=== PATIENT | female | born 1950 | race Caucasian/White ===

== ENCOUNTER → 2016-12-20 | Outpatient (CLI) | payer MEDICAID ==
[~2016-12-20] MED LIST: ALAVERT10 MG PO; AMITRIPTYLINE25 MG PO; ASPI-COR81 M1 PO; ASPIRIN325 M2 PO; ATORVASTATIN CA20 M1 PO; CIPRO500 MG PO; CLONAZEPAM0.5 M1 PO; DILANTIN50 MG PO; FLUOXETINE20 MG PO; Flovent 220 M220 MCG INH; GEODON20 MG PO; LAMISIL AT JOCK IT1% T; METOCLOPRAMIDE H5 M1 PO; METRONIDAZOLE500 M1 PO; MIRTAZAPINE30 MG PO; MOTRIN800 MG PO; NAPROSYN500 MG PO; NICODERM C21 MG/242 TD; NORVASC5 MG PO; OMEPRAZOLE20 MG PO; OS-CAL 500+D31 EACH PO; OYSTER SHELL CA1 T22 PO; PANTOPRAZOLE SO40 MG PO; PHENYTOIN SODI100 M5 PO; PLAVIX75 MG PO; PROAIR HFA0.09 MG/AC IH; RANITIDINE150 MG PO; VITAMIN D32000 UNI1 PO; [UNRECOGNIZED DRUG - OTHER] PO
== END | disposition home or self-care (01) ==
LOC: MAMMO 10:00
DX: Z12.31 Encounter for screening mammogram for malignant neoplasm of breast (principal)

== ENCOUNTER 2017-03-27 14:25 | Inpatient (IN) | payer MEDICAID ==
[~2017-03-27] VITALS: Ht 152.4 cm; Wt 56.7 kg
[2017-03-27 14:25] VITALS: BP 136/80
[2017-03-27] MEDS ORDERED: AMLODIPINE BESYL5 MG PO (14:57)
[2017-03-27] MEDS ORDERED: ASPIRIN325 M2 PO (14:57)
[2017-03-27] MEDS ORDERED: LIPITOR20 MG PO (14:58)
[2017-03-27] MEDS ORDERED: Oscal,Oyster S500 MG PO (15:00)
[2017-03-27] MEDS ORDERED: PROZAC20 MG PO (15:00)
[2017-03-27] MEDS ORDERED: PHENYTOIN100 MG PO (15:01)
[2017-03-27] MEDS ORDERED: ZIPRASIDONE HCL20 M1 PO (15:01)
[2017-03-27] MEDS ORDERED: VITAMIN D31000 UNI1 PO (15:01)
[2017-03-27] MEDS ORDERED: MIRTAZAPINE30 M2 PO (15:02)
[2017-03-27 15:46] VITALS: BP 137/46
[2017-03-27 16:19] LABS: BASO # 0.1 10*3/uL (0.0-0.1); BASO % 0.8 % (0.0-1.0); EOS # 0.2 10*3/uL (0.0-0.4); EOS % 2.7 % (1.0-4.0); HEMATOCRIT 39.5 % (37.0-47.0); HEMOGLOBIN 13.6 g/dl (12.0-16.0); LYMPH # 2.1 10*3/uL (1.3-4.4); LYMPH % 27.5 % (27.0-41.0); MEAN CELL VOLUME 97.8 fl (81.0-99.0); MEAN CORPUSCULAR HGB 33.7 pg (27.0-31.0); MEAN CORPUSCULAR HGB CONC 34.4 g/dl (33.0-37.0); MEAN PLATELET VOLUME 10.3 fl (9.6-12.3); MONO # 0.5 10*3/uL (0.1-1.0); NEUT # 4.9 10*3/uL (2.3-7.9); NEUT % 62.7 % (47.0-73.0); PLATELET COUNT AUTOMATED 157 10*3/uL (130-400); RED BLOOD COUNT 4.04 10*6/uL (4.10-5.10); RED CELL DISTRI WIDTH 11.9 % (0-14.5); WHITE BLOOD COUNT 7.7 10*3/uL (4.8-10.8)
[2017-03-27 16:30] VITALS: BP 132/52
[2017-03-27 16:30] LABS: ACT PARTIAL THROMBO TIME 23.7 SECONDS (20.8-31.5)
[2017-03-27 16:35] LABS: ALBUMIN 3.5 gm/dl (3.1-4.5); ALKALINE PHOSPHATASE 169 U/L (45-117); BUN 9 mg/dl (7-24); CHLORIDE 104 mmol/L (98-107); CREATININE 0.61 mg/dL (0.55-1.02); POTASSIUM 3.6 mmol/L (3.5-5.1); SGOT/AST 18 IU/L (3-35); SGPT/ALT 17 U/L (12-78); SODIUM 140 mmol/L (136-145); TOTAL PROTEIN 7.1 gm/dL (6.4-8.2)
[2017-03-27 17:13] LABS: BILIRUBIN NEGATIVE (NEGATIVE); BLOOD NEGATIVE (NEGATIVE); CLARITY SL CLOUDY (CLEAR); COLOR YELLOW (YELLOW); GLUCOSE NEGATIVE (NEGATIVE); KETONE NEGATIVE (NEGATIVE); LEUKO ESTERASE TRACE (NEGATIVE); NITRITE NEGATIVE (NEGATIVE); PH 6.5 (5.0-9.0); UROBILINOGEN 0.2 E.U./dl (0.2-1.0)
[2017-03-27 17:21] LABS: BACTERIA 1+; EPITHELIAL CELLS TNTC; RBC 0-2 rbc/hpf (0-2)
[2017-03-27 18:00] VITALS: BP 115/43; BP 128/50
[2017-03-28] VITALS: BP 98/60
[2017-03-28 04:00] VITALS: BP 100/50
[2017-03-28 06:11] LABS: BASO # 0.1 10*3/uL (0.0-0.1); BASO % 1.1 % (0.0-1.0); EOS # 0.3 10*3/uL (0.0-0.4); HEMOGLOBIN 12.7 g/dl (12.0-16.0); LYMPH # 1.9 10*3/uL (1.3-4.4); LYMPH % 34.7 % (27.0-41.0); MEAN CELL VOLUME 98.4 fl (81.0-99.0); MEAN CORPUSCULAR HGB 33.8 pg (27.0-31.0); MEAN CORPUSCULAR HGB CONC 34.3 g/dl (33.0-37.0); MEAN PLATELET VOLUME 10.5 fl (9.6-12.3); MONO # 0.4 10*3/uL (0.1-1.0); NEUT # 2.8 10*3/uL (2.3-7.9); PLATELET COUNT AUTOMATED 138 10*3/uL (130-400); RED BLOOD COUNT 3.76 10*6/uL (4.10-5.10); RED CELL DISTRI WIDTH 12.1 % (0-14.5); WHITE BLOOD COUNT 5.4 10*3/uL (4.8-10.8)
[2017-03-28 06:38] LABS: ALBUMIN 3.2 gm/dl (3.1-4.5); BUN 16 mg/dl (7-24); CHLORIDE 104 mmol/L (98-107); CREATININE 0.65 mg/dL (0.55-1.02); POTASSIUM 4.4 mmol/L (3.5-5.1); SGOT/AST 16 IU/L (3-35); SGPT/ALT 18 U/L (12-78); SODIUM 140 mmol/L (136-145); TOTAL PROTEIN 6.6 gm/dL (6.4-8.2)
[2017-03-28 06:39] LABS: ALKALINE PHOSPHATASE 157 U/L (45-117)
[2017-03-28 08:00] VITALS: BP 121/34
[2017-03-28 12:00] VITALS: BP 146/71
[2017-03-28 16:00] VITALS: BP 110/39
[2017-03-28 20:00] VITALS: BP 103/43
[2017-03-29] VITALS: BP 110/50
[2017-03-29 04:00] VITALS: BP 113/58
[2017-03-29 05:16] LABS: BASO # 0.1 10*3/uL (0.0-0.1); BASO % 1.3 % (0.0-1.0); EOS # 0.3 10*3/uL (0.0-0.4); EOS % 5.5 % (1.0-4.0); HEMATOCRIT 35.7 % (37.0-47.0); HEMOGLOBIN 12.2 g/dl (12.0-16.0); LYMPH # 2.1 10*3/uL (1.3-4.4); MEAN CELL VOLUME 98.3 fl (81.0-99.0); MEAN CORPUSCULAR HGB 33.6 pg (27.0-31.0); MEAN CORPUSCULAR HGB CONC 34.2 g/dl (33.0-37.0); MEAN PLATELET VOLUME 10.4 fl (9.6-12.3); MONO # 0.4 10*3/uL (0.1-1.0); MONO % 8.4 % (3.0-9.0); NEUT # 2.4 10*3/uL (2.3-7.9); NEUT % 45.4 % (47.0-73.0); PLATELET COUNT AUTOMATED 137 10*3/uL (130-400); RED BLOOD COUNT 3.63 10*6/uL (4.10-5.10); RED CELL DISTRI WIDTH 11.9 % (0-14.5); WHITE BLOOD COUNT 5.3 10*3/uL (4.8-10.8)
[2017-03-29 05:32] LABS: ALBUMIN 3.1 gm/dl (3.1-4.5); ALKALINE PHOSPHATASE 153 U/L (45-117); BUN 18 mg/dl (7-24); CHLORIDE 105 mmol/L (98-107); POTASSIUM 4.1 mmol/L (3.5-5.1); SGOT/AST 17 IU/L (3-35); SGPT/ALT 16 U/L (12-78); SODIUM 140 mmol/L (136-145); TOTAL PROTEIN 6.3 gm/dL (6.4-8.2)
[2017-03-29 08:00] VITALS: BP 98/40
[2017-03-29 12:00] VITALS: BP 100/67
[2017-03-29] MEDS ORDERED: DILANTIN100 MG PO (14:46)
== END 2017-03-29 15:43 | disposition home health service (06) | DRG 918 ==
LOC: ED 14:25 → EDHOLD 17:06 → ICCU 17:50
PROVIDERS: Emergency Medicine; Internal Medicine
DX: T42.0X1A Poisoning by hydantoin derivatives, accidental (unintentional), initial encounter (principal); E83.41 Hypermagnesemia; I69.351 Hemiplegia and hemiparesis following cerebral infarction affecting right dominant side; I69.320 Aphasia following cerebral infarction; M62.89 Other specified disorders of muscle; R00.1 Bradycardia, unspecified; I10 Essential (primary) hypertension; I73.9 Peripheral vascular disease, unspecified; F32.9 Major depressive disorder, single episode, unspecified; Z87.891 Personal history of nicotine dependence; Z82.49 Family history of ischemic heart disease and other diseases of the circulatory system; Z83.3 Family history of diabetes mellitus; Z80.9 Family history of malignant neoplasm, unspecified; Z79.899 Other long term (current) drug therapy; Z79.82 Long term (current) use of aspirin

== ENCOUNTER 2017-05-02 10:53 | Inpatient (IN) | payer MEDICAID ==
[~2017-05-02] VITALS: Ht 162.5 cm; Wt 61.2 kg
[2017-05-02 10:53] VITALS: BP 139/57
[~2017-05-02 10:53] MED LIST changes: +AMLODIPINE BESYL5 MG PO; +DILANTIN100 MG PO; +LIPITOR20 MG PO; +MIRTAZAPINE30 M2 PO; +Oscal,Oyster S500 MG PO; +PHENYTOIN100 MG PO; +PROZAC20 MG PO; +VITAMIN D31000 UNI1 PO; +ZIPRASIDONE HCL20 M1 PO
[2017-05-02] MEDS ORDERED: NAPROXEN375 MG PO (11:31)
[2017-05-02 11:42] LABS: BASO # 0.1 10*3/uL (0.0-0.1); BASO % 1.2 % (0.0-1.0); EOS # 0.2 10*3/uL (0.0-0.4); EOS % 2.3 % (1.0-4.0); HEMATOCRIT 39.9 % (37.0-47.0); HEMOGLOBIN 13.7 g/dl (12.0-16.0); LYMPH # 1.5 10*3/uL (1.3-4.4); LYMPH % 22.1 % (27.0-41.0); MEAN CELL VOLUME 99.5 fl (81.0-99.0); MEAN CORPUSCULAR HGB 34.2 pg (27.0-31.0); MEAN CORPUSCULAR HGB CONC 34.3 g/dl (33.0-37.0); MONO # 0.4 10*3/uL (0.1-1.0); MONO % 6.3 % (3.0-9.0); NEUT # 4.4 10*3/uL (2.3-7.9); NEUT % 67.6 % (47.0-73.0); PLATELET COUNT AUTOMATED 178 10*3/uL (130-400); RED BLOOD COUNT 4.01 10*6/uL (4.10-5.10); RED CELL DISTRI WIDTH 12.3 % (0-14.5); WHITE BLOOD COUNT 6.6 10*3/uL (4.8-10.8)
[2017-05-02 11:51] LABS: ACT PARTIAL THROMBO TIME 21.6 SECONDS (20.8-31.5)
[2017-05-02 11:59] LABS: ALBUMIN 3.7 gm/dl (3.1-4.5); ALKALINE PHOSPHATASE 161 U/L (45-117); BUN 12 mg/dl (7-24); CHLORIDE 103 mmol/L (98-107); CREATININE 0.68 mg/dL (0.55-1.02); PHENYTOIN (DILANTIN) 5.8 ug/ml (10-20); POTASSIUM 3.6 mmol/L (3.5-5.1); SGOT/AST 26 IU/L (3-35); SGPT/ALT 18 U/L (12-78); SODIUM 138 mmol/L (136-145); TOTAL PROTEIN 7.4 gm/dL (6.4-8.2); TROPONIN I 0.033 ng/ml (<0.045)
[2017-05-02 12:06] VITALS: BP 137/48
[2017-05-02 13:33] VITALS: BP 134/50
[2017-05-02 14:37] LABS: BILIRUBIN NEGATIVE (NEGATIVE); BLOOD NEGATIVE (NEGATIVE); CLARITY SL CLOUDY (CLEAR); COLOR YELLOW (YELLOW); GLUCOSE NEGATIVE (NEGATIVE); KETONE NEGATIVE (NEGATIVE); LEUKO ESTERASE NEGATIVE (NEGATIVE); NITRITE NEGATIVE (NEGATIVE); PH 7.5 (5.0-9.0); SPECIFIC GRAVITY 1.015 (1.005-1.030); UROBILINOGEN 0.2 E.U./dl (0.2-1.0)
[2017-05-02 14:49] LABS: URINE AMPHETAMINES < 1000 (1000ng/ml); URINE BARBITURATES < 200 (200ng/ml); URINE BENZODIAZEPINES < 200 (200ng/ml); URINE CANNABINOIDS (THC) < 50 (50ng/ml); URINE COCAINE < 300 (300ng/ml); URINE METHADONE < 300 (300ng/ml); URINE OPIATES < 300 (300ng/ml)
[2017-05-02 14:50] LABS: URINE PHENCYCLIDINE < 25 (25ng/ml)
[2017-05-02 15:10] LABS: BACTERIA TRACE
[2017-05-02 16:00] VITALS: BP 121/40
[2017-05-02 20:00] VITALS: BP 106/42
[2017-05-03] VITALS: BP 100/48
[2017-05-03 06:54] LABS: BASO # 0.1 10*3/uL (0.0-0.1); EOS # 0.2 10*3/uL (0.0-0.4); EOS % 3.8 % (1.0-4.0); HEMOGLOBIN 11.7 g/dl (12.0-16.0); LYMPH # 1.9 10*3/uL (1.3-4.4); LYMPH % 32.5 % (27.0-41.0); MEAN CELL VOLUME 98.8 fl (81.0-99.0); MEAN CORPUSCULAR HGB 34.5 pg (27.0-31.0); MEAN CORPUSCULAR HGB CONC 34.9 g/dl (33.0-37.0); MEAN PLATELET VOLUME 10.2 fl (9.6-12.3); MONO # 0.5 10*3/uL (0.1-1.0); MONO % 8.6 % (3.0-9.0); NEUT # 3.1 10*3/uL (2.3-7.9); NEUT % 53.9 % (47.0-73.0); PLATELET COUNT AUTOMATED 160 10*3/uL (130-400); RED BLOOD COUNT 3.39 10*6/uL (4.10-5.10); RED CELL DISTRI WIDTH 12.4 % (0-14.5); WHITE BLOOD COUNT 5.7 10*3/uL (4.8-10.8)
[2017-05-03 07:00] LABS: HEMATOCRIT 33.5 % (37.0-47.0)
[2017-05-03 07:12] LABS: ALBUMIN 3.1 gm/dl (3.1-4.5); ALKALINE PHOSPHATASE 131 U/L (45-117); BUN 12 mg/dl (7-24); CHLORIDE 107 mmol/L (98-107); CHOLESTEROL 143 mg/dL (<200); HDL CHOLESTEROL 96 mg/dl (40-60); LDL CHOLESTEROL 39 mg/dL (9-159); PHOSPHOROUS 2.9 mg/dL (2.5-4.9); POTASSIUM 3.7 mmol/L (3.5-5.1); SGOT/AST 20 IU/L (3-35); SGPT/ALT 16 U/L (12-78); SODIUM 140 mmol/L (136-145); TOTAL PROTEIN 6.2 gm/dL (6.4-8.2); TRIGLYCERIDES 39 mg/dl (<150); VLDL CHOLESTEROL 8 mg/dL (6-40)
[2017-05-03 07:17] LABS: PHENYTOIN (DILANTIN) 14.6 ug/ml (10-20)
[2017-05-03 08:00] VITALS: BP 140/72
[2017-05-03 08:33] VITALS: BP 92/50
[2017-05-03 08:51] LABS: VITAMIN D, 25-HYDROXY 36.5 ng/mL (30-100)
[2017-05-03 12:00] VITALS: BP 98/55
== END 2017-05-03 15:59 | disposition home or self-care (01) | DRG 101 ==
LOC: ED 10:53 → EDHOLD 12:26 → 4E 12:26 → EDHOLD 12:44 → 4E 13:06
PROVIDERS: Student in an Organized Health Care Education/Training Program
DX: G40.909 Epilepsy, unspecified, not intractable, without status epilepticus (principal); J44.9 Chronic obstructive pulmonary disease, unspecified; R47.01 Aphasia; D72.810 Lymphocytopenia; D75.89 Other specified diseases of blood and blood-forming organs; R00.1 Bradycardia, unspecified; R55 Syncope and collapse; I10 Essential (primary) hypertension; W10.8XXA Fall (on) (from) other stairs and steps, initial encounter; F32.9 Major depressive disorder, single episode, unspecified; I73.9 Peripheral vascular disease, unspecified; K44.9 Diaphragmatic hernia without obstruction or gangrene; E78.5 Hyperlipidemia, unspecified; Z86.73 Personal history of transient ischemic attack (TIA), and cerebral infarction without residual deficits; Z51.81 Encounter for therapeutic drug level monitoring; Y93.89 Activity, other specified; Y99.8 Other external cause status; Y92.099 Unspecified place in other non-institutional residence as the place of occurrence of the external cause; Z79.82 Long term (current) use of aspirin; Z79.899 Other long term (current) drug therapy; Z87.81 Personal history of (healed) traumatic fracture; Z87.891 Personal history of nicotine dependence; Z72.89 Other problems related to lifestyle; Z82.49 Family history of ischemic heart disease and other diseases of the circulatory system; Z83.6 Family history of other diseases of the respiratory system; Z83.3 Family history of diabetes mellitus; Z80.9 Family history of malignant neoplasm, unspecified; I25.2 Old myocardial infarction

== ENCOUNTER 2017-09-19 22:06 | Inpatient (IN) | payer MEDICAID ==
[~2017-09-19] VITALS: Ht 149.9 cm; Wt 65.0 kg
--- NOTE | ~2017-09-19 | EKG ---
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 Electronically Signed On 09-23-2017 8:01:58 PDT by Clayton Knott MD CM:EKGRPT:ELECTROCARDIOGRAM REPORT [id number] REJI CRUZ MD EPIPHANY DRAFT REPORT REJI CRUZ MD
--- NOTE | ~2017-09-19 | EKG ---
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
--- NOTE | ~2017-09-19 | EKG ---
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
[~2017-09-19 22:06] MED LIST changes: +NAPROXEN375 MG PO
[2017-09-19 22:42] VITALS: BP 136/70
[2017-09-19 23:19] LABS: BASO # 0.1 10*3/uL (0.0-0.1); EOS # 0.2 10*3/uL (0.0-0.4); EOS % 3.1 % (1.0-4.0); HEMATOCRIT 36.7 % (37.0-47.0); HEMOGLOBIN 12.6 g/dl (12.0-16.0); LYMPH # 2.3 10*3/uL (1.3-4.4); LYMPH % 31.5 % (27.0-41.0); MEAN CELL VOLUME 100.5 fl (81.0-99.0); MEAN CORPUSCULAR HGB 34.5 pg (27.0-31.0); MEAN CORPUSCULAR HGB CONC 34.3 g/dl (33.0-37.0); MEAN PLATELET VOLUME 9.8 fl (9.6-12.3); MONO # 0.6 10*3/uL (0.1-1.0); MONO % 7.9 % (3.0-9.0); NEUT # 4.1 10*3/uL (2.3-7.9); NEUT % 56.2 % (47.0-73.0); PLATELET COUNT AUTOMATED 176 10*3/uL (130-400); RED BLOOD COUNT 3.65 10*6/uL (4.10-5.10); RED CELL DISTRI WIDTH 12.2 % (0-14.5); WHITE BLOOD COUNT 7.4 10*3/uL (4.8-10.8)
[2017-09-19 23:36] LABS: ALBUMIN 3.5 gm/dl (3.1-4.5); ALKALINE PHOSPHATASE 149 U/L (45-117); BUN 16 mg/dl (7-24); CHLORIDE 105 mmol/L (98-107); CREATININE 0.63 mg/dL (0.55-1.02); POTASSIUM 3.9 mmol/L (3.5-5.1); SGOT/AST 25 IU/L (3-35); SGPT/ALT 26 U/L (12-78); SODIUM 139 mmol/L (136-145); TOTAL PROTEIN 6.8 gm/dL (6.4-8.2)
[2017-09-19 23:38] LABS: TROPONIN I < 0.015 ng/ml (<0.045)
[2017-09-19 23:53] LABS: BILIRUBIN NEGATIVE (NEGATIVE); BLOOD NEGATIVE (NEGATIVE); CLARITY CLEAR (CLEAR); COLOR YELLOW (YELLOW); GLUCOSE NEGATIVE (NEGATIVE); KETONE NEGATIVE (NEGATIVE); LEUKO ESTERASE NEGATIVE (NEGATIVE); NITRITE NEGATIVE (NEGATIVE); SPECIFIC GRAVITY <= 1.005 (1.005-1.030); UROBILINOGEN 0.2 E.U./dl (0.2-1.0)
[2017-09-20] VITALS (7 sets, daily range): BP systolic 90–146; BP diastolic 46–89
[2017-09-20] MEDS ORDERED: VITAMIN D31000 UNI1 PO (00:19)
[2017-09-20 00:34] LABS: EPITHELIAL CELLS 0-5; WBC 0-2 wbc/hpf (0-5)
[2017-09-20 04:40] LABS: ALBUMIN 3.2 gm/dl (3.1-4.5); ALKALINE PHOSPHATASE 142 U/L (45-117); BUN 12 mg/dl (7-24); CHLORIDE 109 mmol/L (98-107); CHOLESTEROL 143 mg/dL (<200); CREATININE 0.56 mg/dL (0.55-1.02); HDL CHOLESTEROL 80 mg/dl (40-60); LDL CHOLESTEROL 56 mg/dL (9-159); POTASSIUM 3.9 mmol/L (3.5-5.1); SGOT/AST 24 IU/L (3-35); SGPT/ALT 25 U/L (12-78); SODIUM 143 mmol/L (136-145); TOTAL PROTEIN 6.5 gm/dL (6.4-8.2); TRIGLYCERIDES 37 mg/dl (<150); VLDL CHOLESTEROL 7 mg/dL (6-40)
[2017-09-20 08:33] LABS: BASO # 0.1 10*3/uL (0.0-0.1); BASO % 1.5 % (0.0-1.0); EOS # 0.2 10*3/uL (0.0-0.4); EOS % 3.5 % (1.0-4.0); HEMATOCRIT 38.6 % (37.0-47.0); HEMOGLOBIN 13.1 g/dl (12.0-16.0); LYMPH # 1.8 10*3/uL (1.3-4.4); MEAN CELL VOLUME 101.8 fl (81.0-99.0); MEAN CORPUSCULAR HGB 34.6 pg (27.0-31.0); MEAN CORPUSCULAR HGB CONC 33.9 g/dl (33.0-37.0); MEAN PLATELET VOLUME 11.4 fl (9.6-12.3); MONO # 0.4 10*3/uL (0.1-1.0); MONO % 7.8 % (3.0-9.0); NEUT # 2.9 10*3/uL (2.3-7.9); PLATELET COUNT AUTOMATED 155 10*3/uL (130-400); RED BLOOD COUNT 3.79 10*6/uL (4.10-5.10); RED CELL DISTRI WIDTH 12.3 % (0-14.5); WHITE BLOOD COUNT 5.4 10*3/uL (4.8-10.8)
== END 2017-09-20 23:08 | disposition home or self-care (01) | DRG 392 ==
LOC: ED 22:06 → 5E 09-20 00:09 → EDHOLD 09-20 00:09 → 5E 09-20 00:19
PROVIDERS: Emergency Medicine Emergency Medical Services; Student in an Organized Health Care Education/Training Program
DX: K21.9 Gastro-esophageal reflux disease without esophagitis (principal); J84.10 Pulmonary fibrosis, unspecified; E87.8 Other disorders of electrolyte and fluid balance, not elsewhere classified; R47.01 Aphasia; J44.9 Chronic obstructive pulmonary disease, unspecified; D72.824 Basophilia; I34.0 Nonrheumatic mitral (valve) insufficiency; D53.9 Nutritional anemia, unspecified; R00.1 Bradycardia, unspecified; I10 Essential (primary) hypertension; R74.8 Abnormal levels of other serum enzymes; G40.909 Epilepsy, unspecified, not intractable, without status epilepticus; I73.9 Peripheral vascular disease, unspecified; F32.9 Major depressive disorder, single episode, unspecified; K44.9 Diaphragmatic hernia without obstruction or gangrene; E78.2 Mixed hyperlipidemia; Z86.73 Personal history of transient ischemic attack (TIA), and cerebral infarction without residual deficits; Z51.81 Encounter for therapeutic drug level monitoring; Z87.891 Personal history of nicotine dependence; Z82.49 Family history of ischemic heart disease and other diseases of the circulatory system; Z82.5 Family history of asthma and other chronic lower respiratory diseases; Z83.3 Family history of diabetes mellitus; Z80.9 Family history of malignant neoplasm, unspecified; Z79.899 Other long term (current) drug therapy; Z79.82 Long term (current) use of aspirin

== ENCOUNTER 2018-01-29 15:59 | Inpatient (IN) | payer MEDICAID ==
[~2018-01-29] VITALS: Ht 157.4 cm; Wt 62.3 kg
--- NOTE | ~2018-01-29 | PR ---
[place], [place] PROGRESS NOTE [id number] UNIT #: [id number] ROOM: 402 DOCTOR: DESTINI JAIMES MD BIRTHDATE: [birth year] DOS: SUBJECTIVE: The patient has been admitted to the hospital with Dilantin overdose. She is gradually getting better. She is a little more alert and awake, but says she still is feeling quite weak and not able to ambulate much, and she said she feels very weak to go to even the bathroom. She ate her lunch and did it quite comfortably without any problem. No nausea, no vomiting, no constipation or diarrhea. She had some bradycardia on admission, but feeling better now. She has history of eosinophilia, basophilia, alkaline phosphatase elevation and hypertension, history of CVA in the past, depression in the past, peripheral vascular disease, hiatal hernia, COPD, hyperlipidemia and seizure disorder with microcytic anemia. The patient says she did not have any seizures in the hospital. LABORATORY DATA: Her Dilantin level is ____ today, which is improving. CBC showed white count 5500, hemoglobin 12.7, hematocrit 36.8. Basic metabolic profile is normal and the Dilantin level today ____ is 7.1; it is coming down, so is much improved. IMAGING: EKG shows heart rate of 52, CT interval 152, QRST 105 and low voltage precordial leads; otherwise, no acute abnormality seen. OBJECTIVE: VITAL SIGNS: Her blood pressure is 132/50, pulse is 66, respirations 18, temperature 98. CHEST: Clear. HEART: Regular. ABDOMEN: Soft. ASSESSMENT AND PLAN: The patient is encouraged to do some exercise while in the bed or in the chair, and also I encouraged nursing to help encourage her to be ambulating. DESTINI JAIMES MD CM:PNTRANS [id number] DESTINI JAIMES MD 02/02/18 0915 interface
--- NOTE | ~2018-01-29 | PR ---
[place], [place] PROGRESS NOTE [id number] #: [id number] ROOM: 402 DOCTOR: DESTINI JAIMES MD BIRTHDATE: [birth year] DOS: SUBJECTIVE: The patient has been admitted to the hospital with Dilantin toxicity and she is gradually improving. She is conscious, alert and oriented and she was sitting comfortably in the bed and eating her lunch without any problem and she says she is feeling much better, but she is still not ambulating. I encouraged her to move her arms and legs, do lot of exercise. OBJECTIVE: VITAL SIGNS: Her blood pressure is 123/54, pulse 58, respirations 18, temperature 98.7. CHEST: Clear. HEART: Regular. ABDOMEN: Soft. LABORATORY DATA: Her basic metabolic profile is normal today. Dilantin level is 7.1, which is normal also. CBC showed white count 5500, hemoglobin 12.7, hematocrit 36.8. DESTINI JAIMES MD CM:PNTRANS [id number] DESTINI JAIMES MD 02/02/18 1558 interface
--- NOTE | ~2018-01-29 | EKG ---
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
[~2018-01-29 15:59] MED LIST changes: -AVPAK EXTENDED100 M1 PO; -KEPPRA500 MG PO
[2018-01-29 16:01] VITALS: BP 111/89
[2018-01-29 17:57] VITALS: BP 140/55
[2018-01-29] MEDS ORDERED: KEPPRA500 MG PO (18:58)
[2018-01-29 21:19] VITALS: BP 119/55
[2018-01-29 22:02] LABS: PHENYTOIN (DILANTIN) 26.8 ug/ml (10-20)
[2018-01-29 22:04] LABS: TROPONIN I < 0.015 ng/ml (<0.045)
[2018-01-30] VITALS: BP 105/41
[2018-01-30 00:43] LABS: BASO # 0.1 10*3/uL (0.0-0.1); BASO % 1.5 % (0.0-1.0); EOS # 0.2 10*3/uL (0.0-0.4); EOS % 3.9 % (1.0-4.0); HEMATOCRIT 34.4 % (37.0-47.0); HEMOGLOBIN 11.9 g/dl (12.0-16.0); LYMPH # 2.1 10*3/uL (1.3-4.4); LYMPH % 33.6 % (27.0-41.0); MEAN CELL VOLUME 100.6 fl (81.0-99.0); MEAN CORPUSCULAR HGB 34.8 pg (27.0-31.0); MEAN CORPUSCULAR HGB CONC 34.6 g/dl (33.0-37.0); MEAN PLATELET VOLUME 9.6 fl (9.6-12.3); MONO # 0.6 10*3/uL (0.1-1.0); NEUT # 3.2 10*3/uL (2.3-7.9); NEUT % 51.7 % (47.0-73.0); PLATELET COUNT AUTOMATED 181 10*3/uL (130-400); RED BLOOD COUNT 3.42 10*6/uL (4.10-5.10); RED CELL DISTRI WIDTH 11.9 % (0-14.5); WHITE BLOOD COUNT 6.1 10*3/uL (4.8-10.8)
[2018-01-30 01:01] LABS: ALBUMIN 3.3 gm/dl (3.1-4.5); ALKALINE PHOSPHATASE 123 U/L (45-117); BUN 17 mg/dl (7-24); CHLORIDE 104 mmol/L (98-107); CREATININE 0.67 mg/dL (0.55-1.02); PHOSPHOROUS 2.8 mg/dL (2.5-4.9); POTASSIUM 3.9 mmol/L (3.5-5.1); SGOT/AST 22 IU/L (3-35); SGPT/ALT 23 U/L (12-78); SODIUM 137 mmol/L (136-145); TOTAL PROTEIN 6.5 gm/dL (6.4-8.2)
[2018-01-30 01:06] LABS: TROPONIN I < 0.015 ng/ml (<0.045)
[2018-01-30 01:09] LABS: PHENYTOIN (DILANTIN) 23.6 ug/ml (10-20)
[2018-01-30 03:48] LABS: BASO # 0.1 10*3/uL (0.0-0.1); BASO % 1.6 % (0.0-1.0); EOS # 0.3 10*3/uL (0.0-0.4); EOS % 4.7 % (1.0-4.0); HEMATOCRIT 34.3 % (37.0-47.0); HEMOGLOBIN 11.9 g/dl (12.0-16.0); LYMPH # 2.2 10*3/uL (1.3-4.4); LYMPH % 40.3 % (27.0-41.0); MEAN CELL VOLUME 100.6 fl (81.0-99.0); MEAN CORPUSCULAR HGB 34.9 pg (27.0-31.0); MEAN CORPUSCULAR HGB CONC 34.7 g/dl (33.0-37.0); MEAN PLATELET VOLUME 9.4 fl (9.6-12.3); MONO # 0.5 10*3/uL (0.1-1.0); MONO % 8.2 % (3.0-9.0); NEUT # 2.5 10*3/uL (2.3-7.9); PLATELET COUNT AUTOMATED 183 10*3/uL (130-400); RED BLOOD COUNT 3.41 10*6/uL (4.10-5.10); WHITE BLOOD COUNT 5.5 10*3/uL (4.8-10.8)
[2018-01-30 04:10] LABS: BUN 16 mg/dl (7-24); CHLORIDE 105 mmol/L (98-107); CREATININE 0.63 mg/dL (0.55-1.02); SODIUM 139 mmol/L (136-145)
[2018-01-30 04:14] LABS: CHOLESTEROL 146 mg/dL (<200); FREE T4 0.69 ng/dl (0.76-1.46); HDL CHOLESTEROL 83 mg/dl (40-60); LDL CHOLESTEROL 55 mg/dL (9-159); TRIGLYCERIDES 42 mg/dl (<150); VLDL CHOLESTEROL 8 mg/dL (6-40)
[2018-01-30 08:00] VITALS: BP 138/84
[2018-01-30 12:00] VITALS: BP 138/86
[2018-01-30 16:00] VITALS: BP 106/42
[2018-01-30 20:00] VITALS: BP 113/49
[2018-01-31] VITALS: BP 108/48
[2018-01-31 06:41] LABS: BASO # 0.1 10*3/uL (0.0-0.1); BASO % 1.1 % (0.0-1.0); EOS # 0.2 10*3/uL (0.0-0.4); EOS % 3.4 % (1.0-4.0); HEMATOCRIT 36.4 % (37.0-47.0); HEMOGLOBIN 12.1 g/dl (12.0-16.0); LYMPH # 1.9 10*3/uL (1.3-4.4); LYMPH % 30.3 % (27.0-41.0); MEAN CELL VOLUME 102.8 fl (81.0-99.0); MEAN CORPUSCULAR HGB 34.2 pg (27.0-31.0); MEAN CORPUSCULAR HGB CONC 33.2 g/dl (33.0-37.0); MEAN PLATELET VOLUME 10.2 fl (9.6-12.3); MONO # 0.4 10*3/uL (0.1-1.0); MONO % 5.8 % (3.0-9.0); NEUT # 3.8 10*3/uL (2.3-7.9); NEUT % 59.1 % (47.0-73.0); PLATELET COUNT AUTOMATED 176 10*3/uL (130-400); RED BLOOD COUNT 3.54 10*6/uL (4.10-5.10); RED CELL DISTRI WIDTH 12.1 % (0-14.5); WHITE BLOOD COUNT 6.4 10*3/uL (4.8-10.8)
[2018-01-31 07:01] LABS: CHLORIDE 110 mmol/L (98-107); POTASSIUM 3.5 mmol/L (3.5-5.1); SODIUM 141 mmol/L (136-145)
[2018-01-31 07:18] LABS: ALBUMIN 3.1 gm/dl (3.1-4.5); ALKALINE PHOSPHATASE 113 U/L (45-117); BUN 11 mg/dl (7-24); CREATININE 0.52 mg/dL (0.55-1.02); SGOT/AST 21 IU/L (3-35); SGPT/ALT 22 U/L (12-78); TOTAL PROTEIN 6.5 gm/dL (6.4-8.2)
[2018-01-31 08:00] VITALS: BP 119/42
[2018-01-31 12:00] VITALS: BP 128/46
[2018-01-31 16:00] VITALS: BP 128/51
[2018-01-31 20:00] VITALS: BP 132/51
[2018-02-01] VITALS: BP 105/46
[2018-02-01 06:30] LABS: BASO # 0.1 10*3/uL (0.0-0.1); BASO % 1.3 % (0.0-1.0); EOS # 0.3 10*3/uL (0.0-0.4); EOS % 5.1 % (1.0-4.0); HEMATOCRIT 36.8 % (37.0-47.0); HEMOGLOBIN 12.7 g/dl (12.0-16.0); LYMPH % 35.2 % (27.0-41.0); MEAN CELL VOLUME 101.7 fl (81.0-99.0); MEAN CORPUSCULAR HGB 35.1 pg (27.0-31.0); MEAN CORPUSCULAR HGB CONC 34.5 g/dl (33.0-37.0); MEAN PLATELET VOLUME 9.8 fl (9.6-12.3); MONO # 0.4 10*3/uL (0.1-1.0); MONO % 6.9 % (3.0-9.0); NEUT # 2.9 10*3/uL (2.3-7.9); NEUT % 51.3 % (47.0-73.0); PLATELET COUNT AUTOMATED 177 10*3/uL (130-400); RED BLOOD COUNT 3.62 10*6/uL (4.10-5.10); RED CELL DISTRI WIDTH 11.9 % (0-14.5); WHITE BLOOD COUNT 5.5 10*3/uL (4.8-10.8)
[2018-02-01 06:36] LABS: BUN 13 mg/dl (7-24); CHLORIDE 107 mmol/L (98-107); CREATININE 0.58 mg/dL (0.55-1.02); SODIUM 141 mmol/L (136-145)
[2018-02-01 06:51] LABS: PHENYTOIN (DILANTIN) 17.1 ug/ml (10-20)
[2018-02-01 08:00] VITALS: BP 135/52
[2018-02-01 12:00] VITALS: BP 142/61
[2018-02-01 16:00] VITALS: BP 132/50
[2018-02-01 20:00] VITALS: BP 115/51
[2018-02-02] VITALS: BP 119/43
[2018-02-02 08:00] VITALS: BP 123/54
[2018-02-02 12:00] VITALS: BP 126/53
[2018-02-02 16:00] VITALS: BP 126/49
[2018-02-02 20:00] VITALS: BP 127/50
[2018-02-03] VITALS: BP 133/59
[2018-02-03 08:00] VITALS: BP 104/48
[2018-02-03 12:00] VITALS: BP 122/44
[2018-02-03 16:00] VITALS: BP 114/45
[2018-02-03 20:00] VITALS: BP 124/54
[2018-02-04] VITALS: BP 103/39
[2018-02-04 06:37] LABS: BASO # 0.1 10*3/uL (0.0-0.1); BASO % 1.1 % (0.0-1.0); EOS # 0.2 10*3/uL (0.0-0.4); EOS % 3.4 % (1.0-4.0); HEMATOCRIT 36.2 % (37.0-47.0); HEMOGLOBIN 12.3 g/dl (12.0-16.0); LYMPH # 1.6 10*3/uL (1.3-4.4); LYMPH % 26.5 % (27.0-41.0); MEAN CELL VOLUME 100.8 fl (81.0-99.0); MEAN CORPUSCULAR HGB 34.3 pg (27.0-31.0); MEAN PLATELET VOLUME 10.1 fl (9.6-12.3); MONO # 0.4 10*3/uL (0.1-1.0); MONO % 6.5 % (3.0-9.0); NEUT # 3.8 10*3/uL (2.3-7.9); NEUT % 62.2 % (47.0-73.0); PLATELET COUNT AUTOMATED 193 10*3/uL (130-400); RED BLOOD COUNT 3.59 10*6/uL (4.10-5.10); RED CELL DISTRI WIDTH 11.9 % (0-14.5); WHITE BLOOD COUNT 6.1 10*3/uL (4.8-10.8)
[2018-02-04 08:00] VITALS: BP 104/69
[2018-02-04] MEDS ORDERED: AVPAK EXTENDED100 M1 PO (11:01)
[2018-02-04 12:00] VITALS: BP 148/60
[2018-02-04 16:00] VITALS: BP 138/55
== END 2018-02-04 17:34 | disposition home health service (06) | DRG 918 ==
LOC: ED 15:59 → EDHOLD 17:20 → 4E 17:20
PROVIDERS: Internal Medicine; Internal Medicine Nephrology
DX: T42.0X1A Poisoning by hydantoin derivatives, accidental (unintentional), initial encounter (principal); R47.01 Aphasia; E44.1 Mild protein-calorie malnutrition; D70.9 Neutropenia, unspecified; R00.1 Bradycardia, unspecified; F32.9 Major depressive disorder, single episode, unspecified; R74.8 Abnormal levels of other serum enzymes; D53.9 Nutritional anemia, unspecified; E66.3 Overweight; I10 Essential (primary) hypertension; K44.9 Diaphragmatic hernia without obstruction or gangrene; I73.9 Peripheral vascular disease, unspecified; J44.9 Chronic obstructive pulmonary disease, unspecified; E78.5 Hyperlipidemia, unspecified; G40.909 Epilepsy, unspecified, not intractable, without status epilepticus; Z86.73 Personal history of transient ischemic attack (TIA), and cerebral infarction without residual deficits; Z87.81 Personal history of (healed) traumatic fracture; Z98.51 Tubal ligation status; Z87.891 Personal history of nicotine dependence; Z82.5 Family history of asthma and other chronic lower respiratory diseases; Z79.82 Long term (current) use of aspirin; Z79.899 Other long term (current) drug therapy; Y92.89 Other specified places as the place of occurrence of the external cause; Z68.25 Body mass index [BMI] 25.0-25.9, adult

== ENCOUNTER → 2018-01-29 | Outpatient (CLI) | payer MEDICAID ==
[~2018-01-29] MED LIST changes: +AVPAK EXTENDED100 M1 PO; +KEPPRA500 MG PO
== END ==
LOC: LAB 13:16
DX: R56.9 Unspecified convulsions (principal)

== ENCOUNTER 2018-05-05 11:51 | Emergency (ER) | payer MEDICAID ==
[~2018-05-05] VITALS: Ht 152.4 cm; Wt 59.0 kg
--- NOTE | ~2018-05-05 | EKG ---
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
[~2018-05-05 11:51] MED LIST changes: +AVPAK EXTENDED100 M1 PO; +KEPPRA500 MG PO
[2018-05-05 12:50] LABS: BILIRUBIN NEGATIVE (NEGATIVE); BLOOD NEGATIVE (NEGATIVE); CLARITY SL CLOUDY (CLEAR); COLOR YELLOW (YELLOW); GLUCOSE NEGATIVE (NEGATIVE); KETONE NEGATIVE (NEGATIVE); LEUKO ESTERASE TRACE (NEGATIVE); NITRITE NEGATIVE (NEGATIVE); UROBILINOGEN 0.2 E.U./dl (0.2-1.0)
[2018-05-05 13:07] LABS: BASO # 0.1 10*3/uL (0.0-0.1); BASO % 1.1 % (0.0-1.0); EOS # 0.2 10*3/uL (0.0-0.4); EOS % 4.4 % (1.0-4.0); HEMATOCRIT 41.7 % (37.0-47.0); HEMOGLOBIN 14.3 g/dl (12.0-16.0); LYMPH # 1.8 10*3/uL (1.3-4.4); MEAN CORPUSCULAR HGB CONC 34.3 g/dl (33.0-37.0); MEAN PLATELET VOLUME 9.9 fl (9.6-12.3); MONO # 0.3 10*3/uL (0.1-1.0); MONO % 6.9 % (3.0-9.0); NEUT # 2.1 10*3/uL (2.3-7.9); NEUT % 47.2 % (47.0-73.0); PLATELET COUNT AUTOMATED 180 10*3/uL (130-400); RED BLOOD COUNT 4.09 10*6/uL (4.10-5.10); RED CELL DISTRI WIDTH 11.8 % (0-14.5); WHITE BLOOD COUNT 4.5 10*3/uL (4.8-10.8)
[2018-05-05 13:08] LABS: BACTERIA 1+
[2018-05-05 13:36] LABS: ALBUMIN 3.9 gm/dl (3.1-4.5); ALKALINE PHOSPHATASE 164 U/L (45-117); BUN 14 mg/dl (7-24); CHLORIDE 104 mmol/L (98-107); CREATININE 0.67 mg/dL (0.55-1.02); POTASSIUM 4.3 mmol/L (3.5-5.1); SGOT/AST 26 IU/L (3-35); SGPT/ALT 23 U/L (12-78); SODIUM 138 mmol/L (136-145); TOTAL PROTEIN 7.8 gm/dL (6.4-8.2)
[2018-05-05 13:38] LABS: TROPONIN I < 0.015 ng/ml (<0.045)
[2018-05-05 13:45] LABS: PHENYTOIN (DILANTIN) 10.9 ug/ml (10-20)
[2018-05-05] MEDS ORDERED: AMINOPHYLLIN200 MG PO (16:26)
== END 2018-05-05 16:19 | disposition home or self-care (01) ==
LOC: ED 11:51
PROVIDERS: Physician Assistant
DX: R53.1 Weakness (principal); R47.1 Dysarthria and anarthria; Z86.73 Personal history of transient ischemic attack (TIA), and cerebral infarction without residual deficits; Z79.82 Long term (current) use of aspirin; Z79.899 Other long term (current) drug therapy; Z87.891 Personal history of nicotine dependence

== ENCOUNTER 2019-08-21 18:16 | Inpatient (IN) | payer OTHER ==
[~2019-08-21] VITALS: Ht 162.5 cm; Wt 64.6 kg
[~2019-08-21 18:16] MED LIST changes: +AMINOPHYLLIN200 MG PO
[2019-08-21 18:41] VITALS: BP 153/74
[2019-08-21 18:44] LABS: BASO # 0.1 10*3/uL (0.0-0.1); BASO % 1.1 % (0.0-1.0); EOS # 0.3 10*3/uL (0.0-0.4); HEMATOCRIT 38.9 % (37.0-47.0); LYMPH % 24.3 % (27.0-41.0); MEAN CORPUSCULAR HGB 35.4 pg (27.0-31.0); MEAN CORPUSCULAR HGB CONC 35.7 g/dl (33.0-37.0); MONO # 0.7 10*3/uL (0.1-1.0); MONO % 7.9 % (3.0-9.0); NEUT # 5.3 10*3/uL (2.3-7.9); NEUT % 63.5 % (47.0-73.0); PLATELET COUNT AUTOMATED 201 10*3/uL (130-400); RED BLOOD COUNT 3.93 10*6/uL (4.10-5.10); RED CELL DISTRI WIDTH 11.7 % (0-14.5); WHITE BLOOD COUNT 8.3 10*3/uL (4.8-10.8)
[2019-08-21 18:56] LABS: ACT PARTIAL THROMBO TIME 25.4 SECONDS (20.0-32.1)
[2019-08-21 19:00] LABS: ALBUMIN 3.9 gm/dl (3.1-4.5); ALKALINE PHOSPHATASE 138 U/L (45-117); BUN 14 mg/dl (7-24); CHLORIDE 101 mmol/L (98-107); CREATININE 0.87 mg/dL (0.55-1.02); POTASSIUM 3.8 mmol/L (3.5-5.1); SGOT/AST 30 IU/L (3-35); SGPT/ALT 25 U/L (12-78); SODIUM 134 mmol/L (136-145); TOTAL PROTEIN 7.5 gm/dL (6.4-8.2)
[2019-08-21 19:02] LABS: TROPONIN I < 0.015 ng/ml (<0.045)
[2019-08-21 20:04] LABS: BILIRUBIN NEGATIVE (NEGATIVE); BLOOD NEGATIVE (NEGATIVE); CLARITY SL CLOUDY (CLEAR); COLOR YELLOW (YELLOW); GLUCOSE NEGATIVE (NEGATIVE); KETONE NEGATIVE (NEGATIVE); LEUKO ESTERASE TRACE (NEGATIVE); NITRITE NEGATIVE (NEGATIVE); PH 7.5 (5.0-9.0); SPECIFIC GRAVITY 1.015 (1.005-1.030); UROBILINOGEN 0.2 E.U./dl (0.2-1.0)
[2019-08-21 20:05] LABS: BACTERIA 1+; MUCOUS TRACE
[2019-08-21 22:00] VITALS: BP 141/58
[2019-08-22] VITALS (7 sets, daily range): BP systolic 119–166; BP diastolic 52–86
--- NOTE | 2019-08-22 03:55 | NUR ---
PT AWAITING BED PLACEMENT.
--- NOTE | 2019-08-22 04:30 | NUR ---
Time: 429 A 68 year old FEMALE admitted to 5E under services of DR. MINDY GONZALEZ,[facility]. Pt. arrived via ambulance from ER. Chief complaint: ZAKIA LONG
[2019-08-22] MEDS ORDERED: Oscal,Oyster S500 MG PO (04:42)
[2019-08-22] MEDS ORDERED: FLOVENT DISKUS50 MCG INH (04:46)
--- NOTE | 2019-08-22 07:27 | NUR ---
DR. GUILLEN NOTIFIED OF PT'S ADMISSION. ORDERS RCVD.
--- NOTE | 2019-08-22 19:00 | NUR ---
ASSUMED CARE FOR THIS PT AT THIS TIME. PT C/O RT CHEEK/EAR PAIN. FACIAL SWELLING NOTED. REFUSING PAIN MED. WILL CONTINUE TO MONITOR. PT RESTING QUIETLY IN BED W/ALARM ON. CALL LIGHT IN REACH.
--- NOTE | 2019-08-22 23:18 | NUR ---
DR. GUILLEN NOTIFIED OF PT'S C/O PAIN. T.O. RCVD FOR TYLENOL PO.
[2019-08-23] VITALS: BP 118/58
--- NOTE | 2019-08-23 00:30 | NUR ---
PT RESTING QUIETLY IN BED. NO S/S OF DISTRESS NOTED.
--- NOTE | 2019-08-23 00:37 | NUR ---
PT MEDICATED W/TYLENOL FOR RT SIDE OF FACE PAIN.
[2019-08-23 06:39] LABS: BASO % 0.5 % (0.0-1.0); EOS % 0.1 % (1.0-4.0); HEMATOCRIT 37.2 % (37.0-47.0); LYMPH # 1.3 10*3/uL (1.3-4.4); LYMPH % 17.4 % (27.0-41.0); MEAN CORPUSCULAR HGB 34.9 pg (27.0-31.0); MEAN CORPUSCULAR HGB CONC 33.9 g/dl (33.0-37.0); MEAN PLATELET VOLUME 10.2 fl (9.6-12.3); MONO # 0.3 10*3/uL (0.1-1.0); MONO % 4.5 % (3.0-9.0); NEUT # 5.6 10*3/uL (2.3-7.9); NEUT % 77.2 % (47.0-73.0); PLATELET COUNT AUTOMATED 191 10*3/uL (130-400); RED BLOOD COUNT 3.61 10*6/uL (4.10-5.10); RED CELL DISTRI WIDTH 11.9 % (0-14.5); WHITE BLOOD COUNT 7.3 10*3/uL (4.8-10.8)
[2019-08-23 06:52] LABS: ALBUMIN 3.3 gm/dl (3.1-4.5); ALKALINE PHOSPHATASE 122 U/L (45-117); BUN 12 mg/dl (7-24); CHLORIDE 105 mmol/L (98-107); SGOT/AST 21 IU/L (3-35); SGPT/ALT 22 U/L (12-78); SODIUM 135 mmol/L (136-145); TOTAL PROTEIN 6.9 gm/dL (6.4-8.2)
[2019-08-23 06:54] LABS: POTASSIUM 4.8 mmol/L (3.5-5.1)
--- NOTE | 2019-08-23 07:30 | NUR ---
UPON INTIAL ASSESSMENT I NOTED PT TO HAVE CRACKLES TO BILATERAL PB. GREATER ON LEFT THAN RIGHT. NOTIFIED DR GUILLEN. ORDERS RECIEVED.PT C/O SHORTNESS OF BREATH AND MOIST COUGH.CXR ORDERED.FLUIDS D/C'D PER DR GUILLEN'S ORDER. WILL CONTINUE TO MONITOR.
[2019-08-23 08:00] VITALS: BP 132/80
[2019-08-23 12:00] VITALS: BP 116/52
[2019-08-23 16:00] VITALS: BP 114/59
[2019-08-23 20:00] VITALS: BP 118/47
--- NOTE | 2019-08-23 20:10 | NUR ---
PATIENT ASSESSMENT COMPLETED AT THIS TIME WITHOUT INCIDENT. PATIENT DENIES ANY CHEST PAIN, SHORTNESS OF BREATH AT THIS TIME BUT IS COMPLAINING OF SOME LEFT SHOULDER DISCOMFORT NOTIFIED PATIENT THAT SHE DOES HAVE TYLENOL AVAILABLE AND SHE SAID SHE WOULD TAKE THAT. CALL LIGHT WITHIN REACH, WILL CONTINUE TO MONITOR.
--- NOTE | 2019-08-23 22:11 | NUR ---
PRN TYLENOL GIVEN PO AT THIS TIME FOR COMPLAINT OF 5/10 PAIN IN HER LEFT SHOULDER AND ARM. A&O X3, CALL LIGHT WITHIN REACH, WILL CONTINUE TO MONITOR.
--- NOTE | 2019-08-23 23:05 | NUR ---
PATIENT RESTING IN BED IN A POSITION OF COMFORT AT THIS TIME, STATED HER PAIN WAS NOW A 3/10 IN HER LEFT SHOULDER AND ARM. CALL LIGHT WITHIN REACH, WILL CONTINUE TO MONITOR.
[2019-08-24 00:16] VITALS: BP 114/46
--- NOTE | 2019-08-24 01:07 | NUR ---
24 HOUR CHART CHECK COMPLETE
--- NOTE | 2019-08-24 03:30 | NUR ---
PATIENT RESTING IN BED IN A POSITION OF COMFORT AT THIS TIME. NO DISTRESS NOTED AT THIS TIME, RESPIRATIONS EASY AND NON-LABORED. CALL LIGHT WITHIN REACH, WILL CONTINUE TO MONITOR.
[2019-08-24 08:00] VITALS: BP 138/80
--- NOTE | 2019-08-24 09:45 | NUR ---
Nursing screen received and chart reviewed. Patient admitted for SOB, weakness, UTI, COPD exacerbation. If patient has a decline in ADLs, transfers or functional mobility please send OT orders. Thank you. Sarah Childress OTR/L
[2019-08-24 12:00] VITALS: BP 136/59
--- NOTE | 2019-08-24 12:00 | NUR ---
PEICE OF WHITE PAPER REMOVED FROM RIGHT EYE, NURSE NOTICED ON ASSESSMENT, PAPER EASILY REMOVED AND PER PT SHE COULD INSTANTLY SEE BETTER. PAPER WAS APPROXIMATLY 0.5CM LONG WHITE. NO INJURY NOTED TO EYE, NO REDNESS OR DRAINAGE
--- NOTE | 2019-08-24 13:11 | NUR ---
Critical Care Registered Nurse in to talk to patient. Patient states lives at HOME with ALONE. There are FEW steps in the home. Physician: MINDY Pharmacy: [facility] Home health services: NONE Patient's level of ADLs: MODERATE ASSIST Patient has working utilities: YES DME: [facility] Follow-up physician's appointment after d/c: WILL BE MADE BY HOSPITALIST NURSE DIRECTOR ON DISCHARGE Does patient want to access PORTAL?: NO Discharge plan PT LIVES AT HOME ALONE. SPEECH VERY DIFFICULT TO UNDERSTAND. WILL CALL SON AND DISCUSS DISCHARGE PLANS WITH HIM. WILL CONTINUE TO FOLLOW. PT STATES SHE WILL HAVE A RIDE HOME.. BREONNA BRUSH
--- NOTE | 2019-08-24 13:54 | NUR ---
SPOKE WITH PT SON ARI, HE STATES PT LIVES WITH HIM. TALKED TO HIM ABOUT A SNF AND HE SAID IT WOULD BE UP TO HER. STATES HER STROKE WAS OVER 45 YEARS AGO AND SHE HAS LIVED MOST OF HER LIFE IN A CORRECTION AND HE WILL NOT PUT HER THERE PERMENTLY. ASKED HIM ABOUT HOME HEALTH AND HE STATES IF YOU CAN FIND SOMEONE TO TAKE HER. STATES THEY LIVE IN BACK TO [place] AND THEY DON'T WANT TO COME OUT THERE. WILL TALK TO PT ABOUT SNF AND HOME HEALTH.
--- NOTE | 2019-08-24 14:27 | NUR ---
TALKED TO T ABOUT GOING TO A SNF BUT PT STATES NO SHE IS NOT GOING. STATES SHE IS OK WITH HOME HEALTH BUT WILL NOT GO TO [place] EVEN FOR SNF.
[2019-08-24 16:00] VITALS: BP 115/43
[2019-08-24 20:00] VITALS: BP 134/57
--- NOTE | 2019-08-24 20:30 | NUR ---
PATIENT RESTING IN BED IN A POSITION OF COMFORT AT THIS TIME, DENIES ANY CHEST PAIN, SOB, OR DISTRESS AT THIS TIME. A&O X3, SPEECH REMAINS GARBLED AND APHASIC. CALL LIGHT WITHIN REACH, WILL CONTINUE TO MONITOR.
[2019-08-25] VITALS: BP 125/55
[2019-08-25 06:33] LABS: BASO # 0.1 10*3/uL (0.0-0.1); BASO % 0.8 % (0.0-1.0); EOS % 0.1 % (1.0-4.0); HEMATOCRIT 37.2 % (37.0-47.0); LYMPH # 1.7 10*3/uL (1.3-4.4); LYMPH % 22.6 % (27.0-41.0); MEAN CELL VOLUME 103.3 fl (81.0-99.0); MEAN CORPUSCULAR HGB CONC 33.9 g/dl (33.0-37.0); MEAN PLATELET VOLUME 9.9 fl (9.6-12.3); MONO # 0.4 10*3/uL (0.1-1.0); MONO % 5.3 % (3.0-9.0); NEUT # 5.5 10*3/uL (2.3-7.9); NEUT % 70.9 % (47.0-73.0); PLATELET COUNT AUTOMATED 188 10*3/uL (130-400); WHITE BLOOD COUNT 7.7 10*3/uL (4.8-10.8)
[2019-08-25 06:49] LABS: ALBUMIN 3.3 gm/dl (3.1-4.5); ALKALINE PHOSPHATASE 122 U/L (45-117); BUN 22 mg/dl (7-24); CHLORIDE 102 mmol/L (98-107); CREATININE 0.58 mg/dL (0.55-1.02); POTASSIUM 4.2 mmol/L (3.5-5.1); SGOT/AST 27 IU/L (3-35); SGPT/ALT 31 U/L (12-78); SODIUM 135 mmol/L (136-145); TOTAL PROTEIN 7.1 gm/dL (6.4-8.2)
--- NOTE | 2019-08-25 07:49 | NUR ---
LATE NOTE: RESIDENTIAL REAL ESTATE APPRAISER DID SPEAK WITH THE PATIENT 08/24/2019 ABOUT CONCERNS OF NEGLECT AND THE PATIENT NOT BEING CARED FOR. PATIENT DENIED ANY NEGLECT OR ABUSE OCCURING. RESIDENTIAL REAL ESTATE APPRAISER INFORMED PLANER FEEDER.
[2019-08-25 08:00] VITALS: BP 106/72
--- NOTE | 2019-08-25 09:30 | NUR ---
TYLENOL GVIEN FOR C/O HEADACHE. WILL MONITOR.
--- NOTE | 2019-08-25 10:30 | NUR ---
TYLENOL EFFECTIVE PER PT.
[2019-08-25] MEDS ORDERED: AMINOPHYLLIN200 MG PO (11:30)
[2019-08-25] MEDS ORDERED: PREDNISONE10 MG PO (11:30)
[2019-08-25] MEDS ORDERED: DULCOLAX STOOL100 M1 PO (11:37)
[2019-08-25 12:00] VITALS: BP 114/50
--- NOTE | 2019-08-25 12:30 | NUR ---
NORCO GIVEN FOR C/O BLE PAIN, RATES 9/10 ON PAIN SCALE. WILL MONITOR.
--- NOTE | 2019-08-25 17:38 | NUR ---
[facility] Discharge instructions reviewed with patient/family. Patient receptive and verbalizes understanding. Follow-up care arranged. Written instructions given to patient/family. NAVJOT YATES
== END 2019-08-25 17:38 | disposition home or self-care (01) | DRG 140 ==
LOC: ED 18:16 → 5E 08-22 03:19 → EDHOLD 08-22 03:19 → 5E 08-22 03:45
PROVIDERS: Emergency Medicine; Emergency Medicine Emergency Medical Services; ADMIT Internal Medicine
DX: J44.1 Chronic obstructive pulmonary disease with (acute) exacerbation (principal); E87.1 Hypo-osmolality and hyponatremia; N39.0 Urinary tract infection, site not specified; I10 Essential (primary) hypertension; F32.9 Major depressive disorder, single episode, unspecified; I73.9 Peripheral vascular disease, unspecified; K83.8 Other specified diseases of biliary tract; D75.89 Other specified diseases of blood and blood-forming organs; G40.909 Epilepsy, unspecified, not intractable, without status epilepticus; E78.5 Hyperlipidemia, unspecified; R47.01 Aphasia; J84.9 Interstitial pulmonary disease, unspecified; K59.00 Constipation, unspecified; T36.95XA Adverse effect of unspecified systemic antibiotic, initial encounter; Y92.238 Other place in hospital as the place of occurrence of the external cause; Z90.49 Acquired absence of other specified parts of digestive tract; Z87.891 Personal history of nicotine dependence; Z82.49 Family history of ischemic heart disease and other diseases of the circulatory system; Z83.3 Family history of diabetes mellitus; Z80.9 Family history of malignant neoplasm, unspecified; Z79.82 Long term (current) use of aspirin; Z79.899 Other long term (current) drug therapy; I69.354 Hemiplegia and hemiparesis following cerebral infarction affecting left non-dominant side

== ENCOUNTER → 2020-07-22 | Outpatient (CLI) | payer OTHER ==
[~2020-07-22] MED LIST changes: +DULCOLAX STOOL100 M1 PO; +FLOVENT DISKUS50 MCG INH; +NYSTATIN CREAM15 GM T; +PREDNISONE10 MG PO
== END | disposition home or self-care (01) ==
LOC: RAD 01:47
PROVIDERS: ATTEND Orthopaedic Surgery
DX: S72.141A Displaced intertrochanteric fracture of right femur, initial encounter for closed fracture (principal); X58.XXXD Exposure to other specified factors, subsequent encounter

== ENCOUNTER 2020-09-09 11:50 | Inpatient (IN) | payer OTHER ==
[~2020-09-09] VITALS: Ht 157.4 cm; Wt 67.6 kg
[2020-09-09 11:53] VITALS: BP 170/70
[2020-09-09 12:15] LABS: BILIRUBIN Negative (Negative); BLOOD Negative (Negative); CLARITY Clear (Clear); COLOR Yellow (Yellow); GLUCOSE Negative (Negative); KETONE Negative (Negative); LEUKO ESTERASE Negative (Negative); NITRITE Negative (Negative); PH 7.5 (4.5-8.0)
[2020-09-09 12:25] LABS: BACTERIA 2+; MUCOUS 1+; RBC 0-2 rbc/hpf (0-2); WBC 0-2 wbc/hpf (0-5)
[2020-09-09 12:42] LABS: BASO # 0.1 10*3/uL (0.0-0.1); BASO % 1.6 % (0.0-1.0); EOS # 0.7 10*3/uL (0.0-0.4); EOS % 9.1 % (1.0-4.0); HEMATOCRIT 40.9 % (37.0-47.0); LYMPH # 1.5 10*3/uL (1.3-4.4); MEAN CELL VOLUME 94.5 fl (81.0-99.0); MEAN CORPUSCULAR HGB 30.3 pg (27.0-31.0); MEAN PLATELET VOLUME 9.3 fl (9.6-12.3); MONO # 0.5 10*3/uL (0.1-1.0); MONO % 6.7 % (3.0-9.0); NEUT # 4.8 10*3/uL (2.3-7.9); NEUT % 62.5 % (47.0-73.0); PLATELET COUNT AUTOMATED 280 10*3/uL (130-400); RED BLOOD COUNT 4.33 10*6/uL (4.10-5.10); WHITE BLOOD COUNT 7.7 10*3/uL (4.8-10.8)
[2020-09-09 12:59] LABS: ALBUMIN 3.2 gm/dl (3.1-4.5); BUN 10 mg/dl (7-24); CHLORIDE 105 mmol/L (98-107); POTASSIUM 3.3 mmol/L (3.5-5.1); SGOT/AST 17 IU/L (3-35); SGPT/ALT 13 U/L (12-78); SODIUM 133 mmol/L (136-145); TOTAL PROTEIN 7.6 gm/dL (6.4-8.2)
[2020-09-09 13:02] LABS: ALKALINE PHOSPHATASE 144 U/L (45-117)
[2020-09-09 13:03] LABS: TROPONIN I < 0.015 ng/ml (<0.045)
[2020-09-09 15:52] VITALS: BP 149/71
[2020-09-09 17:00] VITALS: BP 156/76
[2020-09-09 20:00] VITALS: BP 134/52
[2020-09-10] VITALS: BP 113/45
[2020-09-10 08:00] VITALS: BP 134/50
[2020-09-10 12:00] VITALS: BP 112/50
[2020-09-10 16:00] VITALS: BP 117/41
[2020-09-10 20:00] VITALS: BP 135/51
[2020-09-11 08:00] VITALS: BP 126/54
[2020-09-11 08:38] LABS: BUN 15 mg/dl (7-24); CHLORIDE 108 mmol/L (98-107); CREATININE 0.42 mg/dL (0.55-1.02); SODIUM 139 mmol/L (136-145)
[2020-09-11 08:42] VITALS: BP 126/54
[2020-09-11 12:00] VITALS: BP 133/86
[2020-09-11 16:00] VITALS: BP 125/32
[2020-09-11 20:00] VITALS: BP 116/43
[2020-09-12] VITALS: BP 129/64
[2020-09-12 08:00] VITALS: BP 113/88
[2020-09-12 12:00] VITALS: BP 142/82
[2020-09-12 16:00] VITALS: BP 152/88
[2020-09-12 20:00] VITALS: BP 154/59
[2020-09-13] VITALS: BP 113/51
[2020-09-13 08:00] VITALS: BP 122/50
[2020-09-13 12:00] VITALS: BP 118/50
[2020-09-13] MEDS ORDERED: ASPIRIN ADULT L81 M2 PO (15:46)
[2020-09-13 16:00] VITALS: BP 132/52
== END 2020-09-13 17:48 | DRG 861 ==
LOC: ED 11:50 → EDHOLD 14:40 → 4E 14:40
PROVIDERS: Physician Assistant; ADMIT Internal Medicine; ATTEND Internal Medicine
DX: R53.1 Weakness (principal); R62.7 Adult failure to thrive; J84.9 Interstitial pulmonary disease, unspecified; I73.9 Peripheral vascular disease, unspecified; G40.909 Epilepsy, unspecified, not intractable, without status epilepticus; R26.2 Difficulty in walking, not elsewhere classified; I10 Essential (primary) hypertension; F32.9 Major depressive disorder, single episode, unspecified; Z20.822 Contact with and (suspected) exposure to COVID-19; J44.9 Chronic obstructive pulmonary disease, unspecified; E87.6 Hypokalemia; E78.5 Hyperlipidemia, unspecified; Z87.891 Personal history of nicotine dependence; Z98.51 Tubal ligation status; Z82.49 Family history of ischemic heart disease and other diseases of the circulatory system; Z83.3 Family history of diabetes mellitus; Z80.8 Family history of malignant neoplasm of other organs or systems; Z82.5 Family history of asthma and other chronic lower respiratory diseases; Z79.899 Other long term (current) drug therapy; I69.351 Hemiplegia and hemiparesis following cerebral infarction affecting right dominant side; I69.320 Aphasia following cerebral infarction; Z68.27 Body mass index [BMI] 27.0-27.9, adult